=== PATIENT | female | born 1960 | race Caucasian/White ===

== ENCOUNTER 2018-12-03 09:00 | Outpatient (CLI) | payer OTHER ==
[2018-12-03 10:50] LABS: Basophils % (Auto) 0.6 % (0.0-1.8); Eosinophils # (Auto) 0.1 K/mm3 (0.0-0.4); Eosinophils % (Auto) 1.5 % (0.0-4.3); Hemoglobin 13.8 gm/dl (10.1-14.3); Lymphocytes # (Auto) 1.6 K/mm3 (1.2-5.4); Lymphocytes % (Auto) 30.6 % (13.4-35.0); Mean Corpuscular HGB Conc 34 % (30-34); Mean Corpuscular Volume 84 fl (79-97); Monocytes # (Auto) 0.3 K/mm3 (0.0-0.8); Monocytes % (Auto) 6.4 % (0.0-7.3); Platelet Count 213 K/mm3 (140-440); Red Blood Count 4.87 M/mm3 (3.65-5.03); Red Cell Distribution Width 14.3 % (13.2-15.2)
[2018-12-03 11:15] LABS: Alanine Aminotransferase 11 units/L (7-56); Albumin 4.2 g/dL (3.9-5); BUN/Creatinine Ratio 23; Blood Urea Nitrogen 14 mg/dL (7-17); Calcium 9.6 mg/dL (8.4-10.2); HDL Cholesterol 71 mg/dL (40-59); Hemolysis Index 9; LDL Cholesterol,Direct 161 mg/dL (50-130)
== END 2018-12-03 09:01 | disposition home or self-care (01) ==
LOC: LAB 09:00
PROVIDERS: ATTEND Internal Medicine
DX: Z00.01 Encounter for general adult medical examination with abnormal findings (principal)
CPT/HCPCS: 36415; 80053; 80061; 82306; 82607; 83036; 84443; 85025; 87806

== ENCOUNTER 2018-12-03 15:09 | Outpatient (CLI) | payer OTHER ==
--- NOTE | 2018-12-03 16:36 | Mammography Report ---
BILATERAL DIGITAL DIAGNOSTIC MAMMOGRAM with CAD: 12/03/18 15:09:00 CLINICAL: History of bilateral reduction mammoplasty. COMPARISON:None available. FINDINGS: The breasts are mostly fatty with residual bilateral central heterogeneously dense fibroglandular densities.A cluster of amorphous left retroareolar calcifications are probably benign. They appear to be associated with a small oil cyst. Additional left inner benign oil cysts measure 11 and 8 mm each. A left outer irregular asymmetry on the CC view demonstrates satisfactory effacement on spot views. There is no correlation on the MLO view. The right breast is negative. Ultrasound of the left breast (including all four quadrants and the retroareolar area) was performed and demonstrated no solid mass or shadowing. A benign cyst at 4 o'clock 3 cm from the nipple measures 1.1 x 0.9 x 0.9 cm and correlates with the larger oil cyst on the mammogram. A 3 x 3 x 3 mm cyst with echogenic reflectors at 6 o'clock 6 cm from the nipple may correlate with the group of calcifications on the mammogram. IMPRESSION: Probably benign left calcifications and a probably benign left mammographic asymmetry on the CC view. Negative right breast. BI-RADS CATEGORY: 3 - - Probably Benign RECOMMENDATION: 6 month followup left mammogram with routine views and magnification views of calcifications. ACR BI-RADS MAMMOGRAPHIC CODES: 0 = Needs additional imaging evaluation; 1 = Negative; 2 = Benign; 3 = Probably benign; 4 = Suspicious; 5 = Malignant; 6 = Known biopsy-proven malignancy COMMENT: 1. Dense breast tissue, i.e., adenosis, fibrocystic changes, etc., may obscure an underlying neoplasm. 2. Approximately 10% of cancers are not detected with mammography. 3. A negative mammography report should not delay biopsy if a clinically suspicious mass is present. COMMENT: Patient follow-up letters are generated by our [employer] application.
== END 2018-12-03 15:10 | disposition home or self-care (01) ==
LOC: MAMMO 15:09
PROVIDERS: ATTEND Internal Medicine
DX: R92.8 Other abnormal and inconclusive findings on diagnostic imaging of breast (principal)
CPT/HCPCS: 77066

== ENCOUNTER 2019-05-28 08:21 | Outpatient (CLI) | payer OTHER ==
[2019-05-28 10:26] LABS: Chol/HDL Ratio 3.45 %
== END 2019-05-28 08:22 | disposition home or self-care (01) ==
LOC: LAB 08:21
PROVIDERS: ATTEND Internal Medicine
DX: E78.5 Hyperlipidemia, unspecified (principal); R73.03 Prediabetes
CPT/HCPCS: 36415; 80061; 83036

== ENCOUNTER 2019-10-13 10:11 | Outpatient (CLI) | payer OTHER ==
[2019-10-13 13:32] LABS: Chol/HDL Ratio 3.03 %
== END 2019-10-13 10:12 | disposition home or self-care (01) ==
LOC: LAB 10:11
PROVIDERS: ATTEND Internal Medicine
DX: R73.03 Prediabetes (principal); E78.5 Hyperlipidemia, unspecified
CPT/HCPCS: 36415; 80061; 83036

== ENCOUNTER 2020-12-07 08:57 | Outpatient (CLI) | payer OTHER ==
[2020-12-07 09:52] LABS: Chol/HDL Ratio 3.05 %
== END 2020-12-07 08:58 | disposition home or self-care (01) ==
LOC: LAB 08:57
PROVIDERS: ATTEND Internal Medicine
DX: E03.9 Hypothyroidism, unspecified (principal); R73.03 Prediabetes
CPT/HCPCS: 36415; 80061; 83036

== ENCOUNTER 2020-12-09 14:42 | Outpatient (CLI) | payer OTHER ==
--- NOTE | 2020-12-10 10:05 | Mammography Report ---
DIGITAL SCREENING MAMMOGRAM WITH CAD, 12/10/2020 CLINICAL INFORMATION / INDICATION: Routine screening mammography. SCREENING WITH ADRIAN TECHNIQUE: Digital bilateral 2D mammography was obtained in the craniocaudal and mediolateral obliqu e projections. This examination was interpreted with the benefit of Computer-Aided Detection analysis . COMPARISON: 12/03/2018 and 06/17/2019 FINDINGS: Breast Density: There are scattered areas of fibroglandular density. No dominant mass, suspicious calcifications, or architectural distortion in either breast. Postreduction changes are noted bilaterally IMPRESSION: No mammographic evidence of malignancy. Follow up recommendation: Routine yearly BI-RADS Category 2: Benign. A "normal" or negative report should not discourage follow up or biopsy of a clinically significant f inding. A written summary of these findings will be mailed to the patient. The patient will be entered into a mammography reporting system which will generate a reminder letter for the patient's next appointmen t at the appropriate interval. The [employer] recommends yearly mammograms starting at age 40 and continuing as l blayne as a woman is in good health. Breast MRI is recommended for women with an approximate 20-25% or greater lifetime risk of breast cancer, including women with a strong family history of breast or ova kay cancer or who have been treated for Hodgkin's disease. Signer Name: Martin Winkler MD Signed: 12/10/2020 10:00 AM Workstation Name: [id number]
== END 2020-12-09 14:43 | disposition home or self-care (01) ==
LOC: SPVWC 14:42
PROVIDERS: ATTEND Internal Medicine
DX: Z12.31 Encounter for screening mammogram for malignant neoplasm of breast (principal); N64.89 Other specified disorders of breast
CPT/HCPCS: 77063; 77067

== ENCOUNTER 2020-12-27 10:42 | Outpatient (CLI) | payer OTHER ==
--- NOTE | 2020-12-27 11:44 | Mammography Report ---
DEXA BONE DENSITY SCAN INDICATION / CLINICAL INFORMATION: OSTEOPOROSIS. 60 years Female COMPARISON: None available. LUMBAR SPINE, L1-L4: - Bone mineral density (BMD) = 0.669 g/cm2. - T-score = -3.4 - Z-score = -2.0 Change (%) since most recent prior (if available): None available. LEFT HIP, NECK : - Bone mineral density (BMD) = 0.692 g/cm2. - T-score = -1.4 - Z-score = -0.3 Change (%) since most recent prior (if available): None available. IMPRESSION: 1. WHO Classification: Osteoporosis. Fracture Risk: High. BMD Reporting Guidelines (ISCD, 2015) BMD Reporting in Postmenopausal Women and in Men Age 50 and Older * T-scores are preferred. * The WHO densitometric classification is applicable. BMD Reporting in Females Prior to Menopause and in Males Younger Than Age 50 * Z-scores, not T-scores, are preferred. This is particularly important in children. * A Z-score of -2.0 or lower is defined as below the expected range for age, and a Z-score above -2. 0 is within the expected range for age. * Osteoporosis cannot be diagnosed in men under age 50 on the basis of BMD alone. * The WHO diagnostic criteria may be applied to women in the menopausal transition. http://www.iscd.org/official-positions/1385-gnek-afqlvzqm-positions-adult/ Signer Name: Rolando Suggs MD Signed: 12/27/2020 11:40 AM Workstation Name: [id number]
== END 2020-12-27 10:43 | disposition home or self-care (01) ==
LOC: MAMMO 10:42
PROVIDERS: ATTEND Internal Medicine
DX: Z13.820 Encounter for screening for osteoporosis (principal); M81.0 Age-related osteoporosis without current pathological fracture; M85.80 Other specified disorders of bone density and structure, unspecified site
CPT/HCPCS: 77080

== ENCOUNTER 2021-04-21 11:24 | Outpatient (CLI) | payer OTHER ==
[2021-04-21 11:52] LABS: Basophils % (Auto) 0.4 % (0.0-1.8); Eosinophils # (Auto) 0.1 K/mm3 (0.0-0.4); Eosinophils % (Auto) 1.1 % (0.0-4.3); Hematocrit 43.3 % (30.3-42.9); Hemoglobin 14.6 gm/dl (10.1-14.3); Lymphocytes # (Auto) 2.2 K/mm3 (1.2-5.4); Mean Corpuscular HGB Conc 34 % (30-34); Mean Corpuscular Volume 85 fl (79-97); Monocytes # (Auto) 0.4 K/mm3 (0.0-0.8); Platelet Count 224 K/mm3 (140-440); Red Blood Count 5.11 M/mm3 (3.65-5.03); Red Cell Distribution Width 14.7 % (13.2-15.2)
[2021-04-21 12:12] LABS: Alanine Aminotransferase 13 units/L (7-56); Albumin 4.3 g/dL (3.9-5); Blood Urea Nitrogen 15 mg/dL (7-17); Calcium 10.3 mg/dL (8.4-10.2); Chol/HDL Ratio 2.91 %; HDL Cholesterol 74 mg/dL (40-59); Hemolysis Index 9; LDL Cholesterol,Direct 146 mg/dL (50-130)
[2021-04-21 12:13] LABS: BUN/Creatinine Ratio 21
[2021-04-24 13:13] LABS: Vitamin D, 25-OH, D2 <4 ng/mL
== END 2021-04-21 11:25 | disposition home or self-care (01) ==
LOC: LAB 11:24
PROVIDERS: ATTEND Internal Medicine
DX: Z13.29 Encounter for screening for other suspected endocrine disorder (principal); Z00.00 Encounter for general adult medical examination without abnormal findings; E78.5 Hyperlipidemia, unspecified; R73.03 Prediabetes; E55.9 Vitamin D deficiency, unspecified
CPT/HCPCS: 36415; 80053; 80061; 82306; 83036; 84443; 85025

== ENCOUNTER 2021-11-02 09:36 | Outpatient (CLI) | payer OTHER ==
[2021-11-02 10:30] LABS: Blood Urea Nitrogen 12 mg/dL (7-17)
--- NOTE | 2021-11-02 11:05 | Cat Scan Report ---
CT CHEST WITH CONTRAST INDICATION / CLINICAL INFORMATION: LOCALIZED SWELLING,MASS LUMP 100 ml omni 300. TECHNIQUE: Axial CT images were obtained through the chest after IV contrast. All CT scans at this location are performed using CT dose reduction for ALARA by means of automated exposure control. COMPARISON: None available. FINDINGS: Mild increased interstitial prominence in the lungs suggest chronic interstitial change. No focal con solidation is seen. No pleural effusion no discrete nodular mass is identified heart and aorta appear normal. Trachea appears normal. Fatty infiltration liver the upper abdomen. ADDITIONAL FINDINGS: None. UPPER ABDOMEN: No significant abnormality. SKELETAL SYSTEM: No significant abnormality. IMPRESSION: Chronic interstitial change in lungs. No discrete nodular mass is seen. Signer Name: Karlo Ribera MD Signed: 11/02/2021 11:00 AM Workstation Name: [id number]
== END 2021-11-02 09:37 | disposition home or self-care (01) ==
LOC: CT 09:36
PROVIDERS: ATTEND Internal Medicine
DX: K76.0 Fatty (change of) liver, not elsewhere classified (principal); R22.2 Localized swelling, mass and lump, trunk; R55 Syncope and collapse; R19.00 Intra-abdominal and pelvic swelling, mass and lump, unspecified site; V89.2XXD Person injured in unspecified motor-vehicle accident, traffic, subsequent encounter
CPT/HCPCS: 36415; 71260; 82565; 84520; Q9967

== ENCOUNTER 2021-12-26 10:12 | Outpatient (CLI) | payer OTHER ==
--- NOTE | 2021-12-26 12:09 | XRay Report ---
LEFT HAND 3 VIEW(S) INDICATION / CLINICAL INFORMATION: M85.642 OTHER CYST OF BONE, LEFT HAND COMPARISON: None available. FINDINGS: BONES / JOINT(S): No acute fracture or subluxation. No significant arthritis. No osseous lesion. SOFT TISSUES: Mild soft tissue swelling along the dorsal aspect of the middle finger metacarpal head. ADDITIONAL FINDINGS: None. IMPRESSION: 1. No osseous lesion. Signer Name: Nico Thao MD Signed: 12/26/2021 12:05 PM Workstation Name: [id number]
== END 2021-12-26 10:13 | disposition home or self-care (01) ==
LOC: XRAY 10:12
PROVIDERS: ATTEND Internal Medicine
DX: M85.642 Other cyst of bone, left hand (principal); M79.89 Other specified soft tissue disorders

== ENCOUNTER 2022-01-05 10:03 | Outpatient (CLI) | payer BC, OTHER ==
--- NOTE | 2022-01-06 11:26 | Mammography Report ---
DIGITAL SCREENING MAMMOGRAM WITH CAD, 01/05/2022 CLINICAL INFORMATION / INDICATION: Routine screening mammography. SCREENING MAMMOGRAM TECHNIQUE: Digital bilateral 2D mammography was obtained in the craniocaudal and mediolateral obliqu e projections. This examination was interpreted with the benefit of Computer-Aided Detection analysis . COMPARISON: 12/09/2020, 12/03/2018.. FINDINGS: Breast Density: There are scattered areas of fibroglandular density. No dominant mass, suspicious calcifications, or architectural distortion in either breast. IMPRESSION: No mammographic evidence of malignancy. Follow up recommendation: Routine yearly BI-RADS Category 1: NEGATIVE A "normal" or negative report should not discourage follow up or biopsy of a clinically significant f inding. A written summary of these findings will be mailed to the patient. The patient will be entered into a mammography reporting system which will generate a reminder letter for the patient's next appointmen t at the appropriate interval. The [employer] recommends yearly mammograms starting at age 40 and continuing as l blayne as a woman is in good health. Breast MRI is recommended for women with an approximate 20-25% or greater lifetime risk of breast cancer, including women with a strong family history of breast or ova kay cancer or who have been treated for Hodgkin's disease. Signer Name: Prakash Meyers MD Signed: 01/06/2022 11:21 AM Workstation Name: [id number]
== END 2022-01-05 10:04 | disposition home or self-care (01) ==
LOC: MAMMO 10:03
PROVIDERS: ATTEND Internal Medicine
DX: Z12.31 Encounter for screening mammogram for malignant neoplasm of breast (principal)
CPT/HCPCS: 77067